=== PATIENT | male | born 1940 | race Caucasian/White ===

== ENCOUNTER 2020-03-06 09:33 | Outpatient (CLI) | payer MEDICARE, SELFPAY ==
--- NOTE | 2020-03-06 09:38 | ECG_ITS ---
Measurements Intervals [place] Rate: 84 P: 50 OK: 239 QRS: -82 QRSD: 173 T: 25 QT: 430 QTc: 509 Interpretive Statements SINUS RHYTHM WITH FIRST DEGREE AV BLOCK LEFT AXIS DEVIATION RIGHT BUNDLE BRANCH BLOCK ABNORMAL ECG Electronically Signed On 03-06-2020 10:02:40 CDT by Magnus Palacio D.O.
== END 2020-03-06 09:34 | disposition home or self-care (01) ==
PROVIDERS: PCP Family Medicine Sports Medicine; Visit Provider Plastic Surgery
DX: Z01.810 Encounter for preprocedural cardiovascular examination (principal); I10 Essential (primary) hypertension; I44.0 Atrioventricular block, first degree; I45.10 Unspecified right bundle-branch block
CPT/HCPCS: 93005

== ENCOUNTER 2020-03-12 00:27 | Outpatient (CLI) | payer MEDICARE, SELFPAY ==
[2020-03-12 20:23] LABS: SARS-CoV-2 RNA PCR Negative
== END 2020-03-12 00:28 | disposition home or self-care (01) ==
LOC: ANHCOVIDDT 00:27
PROVIDERS: PCP Family Medicine Sports Medicine; Visit Provider Plastic Surgery
DX: Z01.812 Encounter for preprocedural laboratory examination (principal); Z20.828 Contact with and (suspected) exposure to other viral communicable diseases
CPT/HCPCS: 87635; C9803; U0003

== ENCOUNTER 2020-03-14 01:51 | Day surgery (SDC) | payer MEDICARE, SELFPAY ==
[2020-03-01 13:16] VITALS: BMI 29.1
--- NOTE | 2020-03-09 20:03 | PM.IMHP ---
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 Our project today is removal of a large 3 cm ulcerated mass of the right parietal scalp. He has been made aware that this ulcerated neoplasm may penetrate through the periosteum to skull. That finding may dictate whether this wound can be closed with a skin graft or require a fairly large local tissue transfer. He is aware of the possibility of wound healing problems, infection, the presence of tumor that may require skull resection at another setting and on another date. Review of Systems Review of Systems: All systems reviewed & are unremarkable except as noted in HPI and below PMFSH Past Medical History Medical History (Updated 03/09/20 @ 20:34 by Shant Thomas MD) Kidney stone Skin cancer Social History Social History Smoking status: Never smoker Alcohol intake: current Drinks per week: 3 Spiritual care concerns: No Meds Home Medications and Allergies Home Medications Medication Instructions Recorded Confirmed Type allopurinol 200 mg PO DAILY 03/01/20 03/01/20 History ascorbic acid (vitamin C) 500 mg PO DAILY 03/01/20 03/01/20 History cholecalciferol (vitamin D3) 50 mcg PO DAILY 03/01/20 03/01/20 History cyanocobalamin (vitamin B-12) 1,000 mcg PO DAILY 03/01/20 03/01/20 History enalapril maleate [Vasotec] 20 mg PO BID 03/01/20 03/01/20 History flaxseed oil 1,000 mg PO BID 03/01/20 03/01/20 History furosemide 40 mg PO DAILY 03/01/20 03/01/20 History gemfibrozil 300 mg PO BID 03/01/20 03/01/20 History xlwjaqsv-xthv-gse3-C-carito-bosw 1 tablet PO BID 03/01/20 03/01/20 History [Osteo Bi-Flex Triple Strength] insulin glargine [Lantus Solostar 75 unit SUBCUT HS 03/01/20 03/01/20 History U-100 Insulin] insulin lispro [Humalog KwikPen 20 unit SUBCUT TID 03/01/20 03/01/20 History Insulin] liraglutide [Victoza 3-Abhijeet] 1.8 mg SUBCUT QAM 03/01/20 03/01/20 History metoprolol tartrate 50 mg PO BID 03/01/20 03/01/20 History rebynihq-lkg-BJ-lycopen-lutein 1 tablet PO DAILY 03/01/20 03/01/20 History [Centrum Silver] omega 3-xwz-bah-fish oil [Fish Oil] 1 cap PO BID 03/01/20 03/01/20 History rosuvastatin [Crestor] 20 mg PO HS 03/01/20 03/01/20 History sitagliptin [Januvia] 100 mg PO DAILY 03/01/20 03/01/20 History Allergies Allergy/AdvReac Type Severity Reaction Status Date / Time meperidine [From Demerol] Allergy Unknown Hallucinati Verified 03/01/20 12:55 ng Exam Narrative: Exam Narrative: 3 cm ulcerated mass of the crown. Several other actinic lesions of the scalp and Face. No palpable adenopathy. Evidence of prior surgeries. Const: General: no acute distress HENMT: Other: No other concerning findings. Eyes: General: appearance normal, both eyes and all related structures Resp: Effort & Inspection: normal respiratory effort Cardio: Rate: regular rate Rhythm: regular rhythm GI: GI Palp: Yes Soft to palpation Skin: Other: As above. Neuro: General: gait normal Speech: normal speech Motor exam (neuro): Normal motor muscle tone present throughout Extrem: General: normal to inspection Psych: Mental Status: mental status grossly normal H&P: Results Labs Labs: Recent A1c 6.7 Assessment and Plan Additional Plan Excision of ulcerated scalp mass with frozen section and wound closure with full-thickness or split-thickness skin graft or local tissue transfer under sedation anesthetic with local.
[2020-03-14 06:48] LABS: Glucose Point of Care 85 (65-105)
[2020-03-14 06:51] VITALS: BP 167/82; PULSE 75; RESP 16; TEMP 37; O2SAT 97
[2020-03-14] MEDS: LACTATED RINGERS 1,000 ML 30 ML IV CONT ×2 (06:58→11:22)
--- NOTE | 2020-03-14 07:12 | WPDANESEPPF ---
Anes - Initial Pre Proc Eval Procedure: Operation Date: 03/14/20 07:30 Proposed Procedures p Excision Ulcerated Neoplasm Right [place] With Frozen Section With Possible Full Thickness Skin Graft Or Local Tissue Transfer - Shant Thomas MD Date/Time: 03/14/20 07:12 Surgeon: Shant Thomas MD Pre Op Diagnosis: Ulcerated Neoplasm Right [place] Patient Data Age: 79 Gender: M Height: 6 ft 2 in Weight: 102.2 kg Last Vital Signs Temp 98.6 F 03/14/20 06:51 Pulse 75 03/14/20 06:51 Resp 16 03/14/20 06:51 BP 167/82 H 03/14/20 06:51 Pulse Ox 97 03/14/20 06:51 Allergies Allergy/AdvReac Type Severity Reaction Status Date / Time meperidine [From Demerol] Allergy Unknown Hallucinati Verified 03/14/20 06:26 Home Medications Medication Instructions Recorded Confirmed Type allopurinol 200 mg PO DAILY 03/01/20 03/01/20 History ascorbic acid (vitamin C) 500 mg PO DAILY 03/01/20 03/14/20 History cholecalciferol (vitamin D3) 50 mcg PO DAILY 03/01/20 03/14/20 History cyanocobalamin (vitamin B-12) 1,000 mcg PO DAILY 03/01/20 03/14/20 History enalapril maleate [Vasotec] 20 mg PO BID 03/01/20 03/01/20 History flaxseed oil 1,000 mg PO BID 03/01/20 03/14/20 History furosemide 40 mg PO DAILY 03/01/20 03/01/20 History gemfibrozil 300 mg PO BID 03/01/20 03/01/20 History rkzaiiba-mqcu-lgt9-C-carito-bosw 1 tablet PO BID 03/01/20 03/01/20 History [Osteo Bi-Flex Triple Strength] insulin glargine [Lantus Solostar 75 unit SUBCUT HS 03/01/20 03/01/20 History U-100 Insulin] insulin lispro [Humalog KwikPen 20 unit SUBCUT TID 03/01/20 03/01/20 History Insulin] liraglutide [Victoza 3-Abhijeet] 1.8 mg SUBCUT QAM 03/01/20 03/01/20 History metoprolol tartrate 50 mg PO BID 03/01/20 03/14/20 History maknyhnr-krx-ZR-lycopen-lutein 1 tablet PO DAILY 03/01/20 03/14/20 History [Centrum Silver] omega 2-iqd-fcu-fish oil [Fish Oil] 1 cap PO BID 03/01/20 03/14/20 History rosuvastatin [Crestor] 20 mg PO HS 03/01/20 03/01/20 History sitagliptin [Januvia] 100 mg PO DAILY 03/01/20 03/01/20 History Laboratory Tests 03/14/20 06:47 POC Capillary Glucose 85 mg/dl mg/dl (65-105) Patient hx anesthesia problems: none Family hx anesthesia problems: none [facility] Past Medical History Medical History (Updated 03/14/20 @ 07:12 by Higinio Fenton MD) Hyperlipidemia Hypertension Kidney stone Skin cancer Social History Social History Smoking status: Never smoker Alcohol intake: current Drinks per week: 3 Alcohol use details: [place] Living arrangements: with family Spiritual care concerns: No Anes - Eval Final PreProcedure Day of Procedure 03/14/20 07:12 Patient weight: obese Heart: regular rate and rhythm Lungs: clear to auscultation Airway: Mallampati scale class III Neurological: alert and oriented Last oral intake: >/= 8 hours ASA classification: III Emergent: no Anesthetic plan: proceed Anesthesia type and monitoring: general GIVS (may use LMA) and standard monitoring Informed Consent: The patient's anesthetic plan and its attendant risks and benefits were discussed with the patient/family/POA. Questions were solicited and answers provided to the satisfaction of the patient/family/POA.
--- NOTE | 2020-03-14 07:14 | WPDHPUPDATE1 ---
History and Physical Update Update Date/Time: 03/14/20 07:14 History and Physical has been reviewed, including an updated exam of the patient. There are NO changes in the patient's condition. Risks, benefits, and alternatives have been discussed and questions answered. Patient agrees to proceed with procedure.
[2020-03-14] MEDS: ceFAZolin 2 GM/D5W 50 ML 2 GM/50 ML BAG IVPB (07:33)
--- NOTE | 2020-03-14 07:49 | SUR.PREOP ---
0645 pt upset and called and then calmner.
[2020-03-14] MEDS: LIDO 1%/EPINEPHRINE 1:100,000 20 ML VIAL INFILTRATE (09:28)
[2020-03-14] MEDS: BACITRACIN OINTMENT 15 GM TUBE 1 APPLIC TOPICAL (09:29)
--- NOTE | 2020-03-14 09:42 | PM.OP ---
Procedure Note - Brief Procedure Note - Brief Date of procedure: 03/14/20 Pre-op diagnosis: Ulcerated Neoplasm Right [place] Post-op diagnosis: other (SCCa) Procedure performed: 3.5 cm excision of SCCA of crown with FS x2 and FTSG 10.0 sq cm. Anesthesia: MAC Surgeon: Sahnt Thomas MD Estimated blood loss (mL): 4 Drains: No Packing: No Pathology: yes Complications: No immediate complications Condition: stable Disposition: same day
[2020-03-14 09:47] VITALS: BP 137/63; PULSE 79; RESP 16; TEMP 36.2; O2SAT 98
--- NOTE | 2020-03-14 10:08 | PM.PROC ---
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 The right thigh was marked also for graft donor site. He was taken to the operating room and placed supine on the operating table. Time-out was held and confirmed and he was given IV sedation. The head and right thigh were prepped and draped in the usual fashion. The site on the head was carefully marked for an excision with a wide margin and infiltrated with% lidocaine with epinephrine. The specimen was excised into the subcutaneous tissue and superficial galea. The aspect nearest the top of the ear was marked as 12:00 o'clock. The specimen was sent to pathology for frozen section. While the diagnosis was pending we took the 2nd specimen that underlay the thickest part of the tumor and appeared to possibly involve the galea. This was carefully excised off the periosteum. A similar marking was placed and that was sent to pathology. The pathologist reported that the peripheral margins were free of tumor the deep margin however was positive on the original specimen but did not penetrate the 2nd specimen. We elected to close the wound with a full-thickness graft from the right thigh. The site was carefully marked out and infiltrated with 1% lidocaine with epinephrine. The graft was taken and set aside. The donor site was undermined and closed with intradermal 2-0 Vicryl suture and a running 5 0 nylon. The graft was carefully defatted and inset with 5-0 and 4-0 nylon. Quilting sutures were also placed across the graft to help it to the wound bed. The patient was given 2 g of Ancef preop. He is being discharged home with instructions in wound care and follow-up. He has a prescription for tramadol 50 mg number 10, and cephalexin 500 mg 15. Surgeon: Shant Thomas MD
[2020-03-14 10:15] VITALS: BP 135/80; PULSE 75; RESP 16; O2SAT 98
[2020-03-14 10:45] VITALS: BP 157/69; PULSE 72; RESP 16
[2020-03-14 11:05] VITALS: BP 154/69; PULSE 75; RESP 16
== END 2020-03-14 11:15 | disposition home or self-care (01) ==
PROVIDERS: PCP Family Medicine Sports Medicine; Visit Provider Plastic Surgery
PROC: (CPT 11624; principal; 2020-03-14 07:30)
DX: C44.42 Squamous cell carcinoma of skin of scalp and neck (principal); I10 Essential (primary) hypertension; E78.5 Hyperlipidemia, unspecified; E11.9 Type 2 diabetes mellitus without complications; Z79.4 Long term (current) use of insulin; E66.9 Obesity, unspecified; Z68.28 Body mass index [BMI] 28.0-28.9, adult
CPT/HCPCS: 11624; 15220; 88305; 88331; 88332; A9270; J0690; J2704; J3010; J7120

== ENCOUNTER 2020-04-17 00:18 | Outpatient (CLI) | payer MEDICARE, SELFPAY ==
[2020-04-17 20:04] LABS: SARS-CoV-2 RNA PCR Negative
== END 2020-04-17 00:19 | disposition home or self-care (01) ==
LOC: ANHCOVIDDT 00:19
PROVIDERS: PCP Family Medicine Sports Medicine; Visit Provider Plastic Surgery
DX: Z01.812 Encounter for preprocedural laboratory examination (principal); Z11.59 Encounter for screening for other viral diseases
CPT/HCPCS: 87635; C9803; U0003

== ENCOUNTER 2020-04-17 07:35 | Outpatient (CLI) | payer MEDICARE, SELFPAY ==
[2020-04-17 08:04] LABS: Anion Gap 7 mmol/L (8-16); Blood Urea Nitrogen 21 mg/dL (9-20); Calcium 8.6 mg/dL (8.4-10.2); Carbon Dioxide 21 mmol/L (22-30); Chloride 112 mmol/L (98-107); Estimated Glomerular Filt Rate > 60; Glucose 134 mg/dL (75-110); Potassium 3.7 mmol/L (3.4-5.0); Sodium 140 mmol/L (137-145)
== END 2020-04-17 07:36 | disposition home or self-care (01) ==
LOC: ANHSURGERY 07:37
PROVIDERS: Anesthesiology; PCP Family Medicine Sports Medicine; Visit Provider Plastic Surgery
DX: Z01.818 Encounter for other preprocedural examination (principal); E11.9 Type 2 diabetes mellitus without complications
CPT/HCPCS: 36415; 80048

== ENCOUNTER 2020-04-19 01:20 | Day surgery (SDC) | payer MEDICARE, SELFPAY ==
[2020-04-12 10:12] VITALS: BMI 29.2
[2020-04-19 06:52] VITALS: BP 131/63; PULSE 72; RESP 20; TEMP 36.8; O2SAT 98
[2020-04-19] MEDS: LACTATED RINGERS 1,000 ML 30 ML IV CONT (07:10)
[2020-04-19 07:12] LABS: Glucose Point of Care 115 (65-105)
--- NOTE | 2020-04-19 07:15 | WPDHPUPDATE1 ---
History and Physical Update Update Date/Time: 04/19/20 07:15 History and Physical has been reviewed, including an updated exam of the patient. There are NO changes in the patient's condition. Risks, benefits, and alternatives have been discussed and questions answered. Patient agrees to proceed with procedure.
--- NOTE | 2020-04-19 07:37 | WPDANESEPPF ---
Anes - Initial Pre Proc Eval Procedure: Operation Date: 04/19/20 08:30 Proposed Procedures p Excision Of Ulcerated Neoplasm Left Anterior [place] With Frozen Section, Possible Full Thickness Skin Graft Or Local Tissue Transfer - Shant Thomas MD Date/Time: 04/19/20 07:37 Surgeon: Shant Thomas MD Pre Op Diagnosis: Ulcerated Neoplasm Left Anterior [place] Patient Data Age: 79 Gender: M Height: 6 ft 2 in Weight: 101.6 kg Last Vital Signs Temp 98.3 F 04/19/20 06:52 Pulse 72 04/19/20 06:52 Resp 20 04/19/20 06:52 BP 131/63 04/19/20 06:52 Pulse Ox 98 04/19/20 06:52 Allergies Allergy/AdvReac Type Severity Reaction Status Date / Time meperidine [From Demerol] Allergy Unknown Hallucinati Verified 04/19/20 07:17 ng Home Medications Medication Instructions Recorded Confirmed Type allopurinol 200 mg PO DAILY 03/01/20 04/19/20 History ascorbic acid (vitamin C) 500 mg PO DAILY 03/01/20 04/19/20 History cholecalciferol (vitamin D3) 50 mcg PO DAILY 03/01/20 04/19/20 History cyanocobalamin (vitamin B-12) 1,000 mcg PO DAILY 03/01/20 04/19/20 History enalapril maleate [Vasotec] 20 mg PO BID 03/01/20 04/19/20 History flaxseed oil 1,000 mg PO BID 03/01/20 04/19/20 History furosemide 40 mg PO DAILY 03/01/20 04/19/20 History gemfibrozil 300 mg PO BID 03/01/20 04/19/20 History sarkxncy-lznd-ftq3-C-carito-bosw 1 tablet PO BID 03/01/20 04/19/20 History [Osteo Bi-Flex Triple Strength] insulin glargine [Lantus Solostar 75 unit SUBCUT HS 03/01/20 04/19/20 History U-100 Insulin] insulin lispro [Humalog KwikPen 20 unit SUBCUT TID 03/01/20 04/19/20 History Insulin] liraglutide [Victoza 3-Abhijeet] 1.8 mg SUBCUT QAM 03/01/20 04/19/20 History metoprolol tartrate 50 mg PO BID 03/01/20 04/19/20 History vbqfoymj-fzr-FW-lycopen-lutein 1 tablet PO DAILY 03/01/20 04/19/20 History [Centrum Silver] omega 2-uie-hpx-fish oil [Fish Oil] 1 cap PO BID 03/01/20 04/19/20 History rosuvastatin [Crestor] 20 mg PO HS 03/01/20 04/19/20 History sitagliptin [Januvia] 100 mg PO DAILY 03/01/20 04/19/20 History Laboratory Tests 04/19/20 07:08 POC Capillary Glucose 115 mg/dl H mg/dl (65-105) Patient hx anesthesia problems: none Family hx anesthesia problems: none [facility] Past Medical History Medical History (Updated 04/19/20 @ 07:28 by Higinio Fenton MD) Diabetes type 2, controlled Hyperlipidemia Hypertension Kidney stone Skin cancer Social History Social History Smoking status: Never smoker Alcohol intake: current Drinks per week: 3 Alcohol use details: ONE DRINK PER MONTH Living arrangements: with family Spiritual care concerns: No Anes - Eval Final PreProcedure Day of Procedure 04/19/20 07:37 Patient weight: overweight Heart: regular rate and rhythm Lungs: clear to auscultation Airway: Mallampati scale class III Neurological: alert and oriented Last oral intake: >/= 8 hours ASA classification: III Emergent: no Anesthetic plan: proceed Anesthesia type and monitoring: general GIVS and standard monitoring Informed Consent: The patient's anesthetic plan and its attendant risks and benefits were discussed with the patient/family/POA. Questions were solicited and answers provided to the satisfaction of the patient/family/POA.
[2020-04-19] MEDS: LIDO 1%/EPINEPHRINE 1:100,000 20 ML VIAL INFILTRATE (08:30)
[2020-04-19 10:05] VITALS: BP 144/73; PULSE 66; RESP 15; TEMP 36.4; O2SAT 97
--- NOTE | 2020-04-19 10:28 | PM.OP ---
Procedure Note - Brief Procedure Note - Brief Date of procedure: 04/19/20 Pre-op diagnosis: Ulcerated Neoplasm Left Anterior [place] Post-op diagnosis: other (BCC left anterior oriental orthodox.) Procedure performed: Excision BCC left anterior oriental orthodox 6 sq cm with FS and LTT,17 sq cm. Anesthesia: MAC Surgeon: Shant Thomas MD Drains: No Packing: No Pathology: yes Complications: No immediate complications Condition: stable Disposition: same day
[2020-04-19 10:35] VITALS: BP 137/67; PULSE 57; RESP 15
[2020-04-19 10:35] LABS: Glucose Point of Care 119 (65-105)
--- NOTE | 2020-04-19 10:37 | P.OP_ITS ---
Procedure Note - Detailed Date of procedure: 04/19/20 Pre-op diagnosis: Ulcerated Neoplasm Left Anterior [place] Post-op diagnosis: other (Basal cell carcinoma left anterior temporal) Procedure performed: 3 cm excision of basal cell carcinoma of the left anterior denominational with frozen section and local tissue transfer 17 sq cm Description of procedure: The site on the forehead was marked as the patient lay in the holding area. He was taken to the operating room and placed supine on the operating table. A time-out was held and confirmed. He was given sedation anesthetic. The Face was prepped and draped in usual fashion along with a donor site on the left supraclavicular region. The site was marked for excision with what we thought would be at least a 4 mm margin. This area was infiltrated with 1% lidocaine with epinephrine. The skin excision was made as marked and dissection was carried carefully over the orbicularis and frontalis muscle. We did not see any branch of the frontal branch of the facial nerve. The specimen was marked with a suture for 12 o'clock. It was sent to pathology. The pathologist reported that this is a basal cell carcinoma, fairly extensive,But the margins were free. The wound was closed with a Z-plasty. This was locally infiltrated with 1% lidocaine with epinephrine, incised and widely elevated. We were able to close that with the intradermal 3-0 Vicryl sutures. Very little tailoring was required. The skin was closed with running 5 0 nylon. Estimated blood loss approximately 5 milliliter. He is discharged from the operating room in stable condition. He will have instructions in wound care and follow-up. He has prescriptions called in for cephalexin 500 mg 15. And Tramadol number 12. Surgeon: Shant Thomas MD
[2020-04-19 10:50] VITALS: BP 127/67; PULSE 64; RESP 15
== END 2020-04-19 10:53 | disposition home or self-care (01) ==
PROVIDERS: PCP Family Medicine Sports Medicine; Visit Provider Plastic Surgery
PROC: (CPT 14041; principal; 2020-04-19 08:30)
DX: C44.319 Basal cell carcinoma of skin of other parts of face (principal); I10 Essential (primary) hypertension; E78.5 Hyperlipidemia, unspecified; E11.9 Type 2 diabetes mellitus without complications; Z79.4 Long term (current) use of insulin; Z79.84 Long term (current) use of oral hypoglycemic drugs
CPT/HCPCS: 14041; 36415; 80048; 87635; 88305; 88331; A9270; C9803; J2405; J2704; J3010; J7120; U0003

== ENCOUNTER 2021-09-04 00:42 | Day surgery (SDC) | payer MEDICARE, SELFPAY ==
[2021-08-28 08:35] VITALS: BMI 29.7
--- NOTE | 2021-08-28 09:04 | PC.NURSE ---
Report to the Outpatient Waiting Room, entrance under the green pavilion located off [facility], at time __6:00AM on date __09/04/21 . OR Time: _7:30AAM . - You will be asked a series of questions to screen for COVID 19 for your protection. - A mask is required within the hospital. - No visitors are allowed at this time. Preoperative COVID Testing Requirements: No COVID Test needed if: (proof is required; if not received patient will have Rapid Test prior to entry) - Patient has received COVID Vaccine at least 14 days prior to procedure date or - Patient has positive COVID test result within last 90 days of surgery date. COVID Test needed if above criteria is not met If not COVID vaccinated a COVID test must be conducted within 72 hours of surgery and patient is asked to isolate self from time of testing until procedure. You will go to the [facility] for your COVID testing. The [facility] is located at the corner of [address] [facility]. You will only be called if COVID results are positive and your surgeon may reschedule your elective surgery date. Patients may have clear liquids (water, carbonated beverages, clear teas, apple juice) until 3 hours prior to surgery with a maximum of 20 ounces. - No food from midnight until time of surgery - Infants may have breast milk until 4 hours before surgery, formula 6 hours prior to surgery. - Children will be allowed to drink immediately following surgery. If applicable, please bring a bottle or sippy cup to assist with drinking. Juice, water, soda, and popsicles are readily available. For infants on formula, please bring formula the day of surgery. Pacifiers are allowed. Take the following medications with a SIP of water the morning of surgery: METOPROLOL Medications to discontinue per physician ____ALL VITAMINS/SUPPLEMENTS 3 DAYS PRE-OP Date to take last dose 09/01/21 Please no make-up, nail greenlandic, hairspray, perfume, deodorant, or body powder the day of surgery. No jewelry (including any body piercings) or valuables the day of surgery, leave them at home. Please take a shower or bath the night before, or the morning of, surgery with an antibacterial soap. Wear comfortable, loose fitting clothing. Children are encouraged to wear pajamas. - Jewelry must be removed prior to entering the operating room. Rings and piercings that are not removed may be cut off. - The hospital will not accept responsibility for valuables. - Please leave all valuables, including medications, at home the day of surgery. If you are going home after surgery, a licensed public transit bus driver must drive you home. - NO public transportation without another adult. - We recommend that an adult stay with you for 24 hours following discharge. - We also recommend that you do not drive, make important decision, drink alcoholic beverages, or take any drugs that were not prescribed by your health care provider for at least 24 hours after your discharge time. For Pediatric surgeries, we recommend two adults accompany the child home (only one inside the building at this time). Follow any additional instructions given to you from your surgeon. Telephone instructions given to __PATIENT and asked if any additional questions and then verbalized understanding. Patient advised to call surgeon office or pre surgery nurse liaison [phone] if any additional questions.
[2021-09-04 06:23] VITALS: BP 174/81; PULSE 78; RESP 16; TEMP 36.8; O2SAT 98
--- NOTE | 2021-09-04 06:45 | WPDANESEPPF ---
Anes - Initial Pre Proc Eval Procedure: Operation Date: 09/04/21 07:30 Proposed Procedures p Excision of Ulcerated Mass Right [place] with Frozen Section and Probable Split Thickness Skin Graft - Shant Thomas MD Date/Time: 09/04/21 06:45 Surgeon: Shant Thomas MD Pre Op Diagnosis: Ulcerated Mass Rt [place] Patient Data Age: 80 Gender: M Height: 1.88 m Weight: 106.8 kg Last Vital Signs Temp 36.8 C 09/04/21 06:23 Pulse 78 09/04/21 06:23 Resp 16 09/04/21 06:23 BP 174/81 H 09/04/21 06:23 Pulse Ox 98 09/04/21 06:23 Allergies Allergy/AdvReac Type Severity Reaction Status Date / Time meperidine [From Demerol] Allergy Mild Hallucinati Verified 09/04/21 06:36 ons Home Medications Medication Instructions Recorded Confirmed Type Centrum Silver 1 tablet PO DAILY 03/01/20 09/04/21 History Januvia 100 mg PO QAM 03/01/20 09/04/21 History Lantus Solostar U-100 Insulin 75 unit SUBCUT HS 03/01/20 09/04/21 History Osteo Bi-Flex Triple Strength 1 tablet PO BID 03/01/20 09/04/21 History Victoza 3-Abhijeet 1.8 mg SUBCUT QAM 03/01/20 09/04/21 History allopurinol 200 mg PO DAILY 03/01/20 09/04/21 History ascorbic acid (vitamin C) 500 mg PO DAILY 03/01/20 09/04/21 History cholecalciferol (vitamin D3) 100 mcg PO DAILY 03/01/20 09/04/21 History cyanocobalamin (vitamin B-12) 1,000 mcg PO DAILY 03/01/20 09/04/21 History enalapril maleate [Vasotec] 20 mg PO BID 03/01/20 09/04/21 History flaxseed oil 1,000 mg PO BID 03/01/20 09/04/21 History furosemide 40 mg PO QAM 03/01/20 09/04/21 History gemfibrozil 300 mg PO BID 03/01/20 09/04/21 History insulin lispro [Humalog KwikPen 20 unit SUBCUT TIDWMEAL 03/01/20 09/04/21 History Insulin] metoprolol tartrate 50 mg PO BID 03/01/20 09/04/21 History omega 2-beq-edy-fish oil [Fish Oil] 1 cap PO BID 03/01/20 09/04/21 History rosuvastatin [Crestor] 20 mg PO HS 03/01/20 09/04/21 History Patient hx anesthesia problems: none Family hx anesthesia problems: none Results Review: All pre-operative results and documents have been reviewed as part of the pre-operative evaluation. [facility] Past Medical History Medical History (Updated 09/03/21 @ 13:54 by Fred Gresham DO) CHF (congestive heart failure) Diabetes type 2, controlled Hyperlipidemia Hypertension Kidney stone Skin cancer Social History Social History Smoking status: Never smoker Tobacco type: pipe Alcohol intake: current Drinks per week: 2 Alcohol use details: ONE DRINK PER MONTH Substance use: never Living arrangements: with family Additional living arrangements comments: Spiritual care concerns: No Anes - Eval Final PreProcedure Day of Procedure 09/04/21 06:45 Patient weight: obese Heart: regular rate and rhythm Lungs: clear to auscultation and normal air movement Airway: Mallampati scale class II Neurological: alert and oriented Last oral intake: >/= 8 hours ASA classification: III Emergent: no Anesthetic plan: proceed Anesthesia type and monitoring: general GIVS and standard monitoring Results Review: All pre-operative results and documents have been reviewed as part of the pre-operative evaluation. Informed Consent: The patient's anesthetic plan and its attendant risks and benefits were discussed with the patient/family/POA. Questions were solicited and answers provided to the satisfaction of the patient/family/POA.
[2021-09-04] MEDS: LACTATED RINGERS 1,000 ML 30 ML IV CONT (06:50)
[2021-09-04 06:54] LABS: Glucose Point of Care 143 mg/dl (65-105)
--- NOTE | 2021-09-04 07:19 | WPDHPUPDATE1 ---
History and Physical Update Update Date/Time: 09/04/21 07:19 History and Physical has been reviewed, including an updated exam of the patient. There are NO changes in the patient's condition. Risks, benefits, and alternatives have been discussed and questions answered. Patient agrees to proceed with procedure.
[2021-09-04] MEDS: ceFAZolin 2 GM/D5W 50 ML 2 GM/50 ML BAG IVPB (07:23)
[2021-09-04] MEDS: LIDO 1%/EPINEPHRINE/PF 1:200,000 30 ML VIAL INFILTRATE (08:00)
[2021-09-04] MEDS: BACITRACIN OINTMENT 15 GM TUBE 1 APPLIC TOPICAL (08:54)
[2021-09-04 09:00] VITALS: BP 127/64; PULSE 87; RESP 16; O2SAT 94
--- NOTE | 2021-09-04 09:24 | P.OP_ITS ---
Procedure Note - Detailed Date of Procedure 09/04/21 Pre-op Diagnosis Ulcerated Mass Rt [place] Post-op Diagnosis other (Actinic keratosis) Procedure Performed 1.8 cm excision of ulcerated neoplasm of the right crown with frozen section and full-thickness skin graft 2.5 sq cm Surgeon Shant Thomas MD Anesthesia MAC Indications 1.5 cm depressed keratotic mass adjacent to a prior skin cancer site. Findings Actinic keratoses Description of Procedure The site was marked on the patient's head in the preop area. This was a very hard depressed keratin mass. A recent biopsy indicated actinic keratoses along 1 side of this mass. He was taken to the operating room where he was placed supine on the operating table. He was administered sedation anesthetic in the supine position. The head and right neck were prepped and draped in usual fashion. The head was supported to allow access to the crown. A time-out was held confirmed. The margins of the mass were marked and the area locally infiltrated with 1% lidocaine with epinephrine. The excision was carried out through the skin and subcutaneous tissue sparing the deep scar and periosteum. Specimen was marked at the anterior edge with a suture to orient the pathologist. The pathologist reported that the mass is entirely and actinic keratoses. Skin graft was harvested from right upper neck. It was prepared as a full-thickness graft and inset with running 5 0 nylon. Pie crusting vents were made with the 15 blade and quilting sutures in placed. And small dry dressing was applied over bacitracin ointment. The donor site on the right neck was closed with intradermal 3-0 Vicryl and glue. Estimated Blood Loss -10.0 Drains No Packing No Pathology yes Complications No immediate complications Condition stable Disposition same day
[2021-09-04 09:28] LABS: Glucose Point of Care 152 mg/dl (65-105)
[2021-09-04 09:30] VITALS: BP 155/74; PULSE 85; RESP 16; O2SAT 97
[2021-09-04 09:40] VITALS: BP 141/69; PULSE 80; RESP 16
== END 2021-09-04 09:50 | disposition home or self-care (01) ==
PROVIDERS: PCP Family Medicine Sports Medicine; Visit Provider Plastic Surgery
PROC: (CPT 11422; principal; 2021-09-04 07:30)
DX: L57.0 Actinic keratosis (principal); I11.0 Hypertensive heart disease with heart failure; I50.9 Heart failure, unspecified; E11.9 Type 2 diabetes mellitus without complications; E78.5 Hyperlipidemia, unspecified; Z79.4 Long term (current) use of insulin; E66.9 Obesity, unspecified; Z68.30 Body mass index [BMI] 30.0-30.9, adult
CPT/HCPCS: 11422; 15220; 82948; 88305; 88331; A9270; J0690; J1100; J2405; J2704; J3010; J7120

== ENCOUNTER 2024-04-01 13:24 | Outpatient (CLI) | payer MEDICARE, SELFPAY ==
--- NOTE | 2024-04-01 13:43 | ECG_ITS ---
Test Date: 2024-04-01 14:09:37 Measurements Intervals [place] Rate: 92 P: 89 IN: 210 QRS: -54 QRSD: 152 T: 104 QT: 400 QTc: 497 Interpretive Statements ATRIAL SENSE- ELECTRONIC VENTRICULAR PACEMAKER BASELINE ARTIFACT- I, III, AVR, AVL, AVF, V1-V6 NO FURTHER INTERPRETATION IS POSSIBLE ATYPICAL ECG No previous ECG available for comparison Electronically Signed On 04-01-2024 15:33:48 CDT by Magnus Palacio D.O.
[2024-04-01 14:25] LABS: Chloride 108 mmol/L (98-107)
[2024-04-01 14:30] LABS: INR 1.1; Prothrombin Time 14.4 Seconds (11.1-14.7)
[2024-04-01 14:31] LABS: Partial Thromboplastin Time 27.1 Seconds (22.3-36.8)
[2024-04-01 14:41] LABS: Anion Gap 12 mmol/L (4-12); Blood Urea Nitrogen 21 mg/dL (9-20); Calcium 8.8 mg/dL (8.4-10.2); Carbon Dioxide 17 mmol/L (22-30); Estimated Glomerular Filt Rate 58; Glucose 251 mg/dL (65-110); Sodium 137 mmol/L (137-145)
== END 2024-04-01 13:25 | disposition home or self-care (01) ==
PROVIDERS: Anesthesiology; PCP Family Medicine Sports Medicine; Visit Provider Plastic Surgery
DX: Z01.818 Encounter for other preprocedural examination (principal); N28.9 Disorder of kidney and ureter, unspecified; E11.9 Type 2 diabetes mellitus without complications; Z95.0 Presence of cardiac pacemaker
CPT/HCPCS: 36415; 80048; 85610; 85730; 93005

== ENCOUNTER 2024-04-06 01:58 | Day surgery (SDC) | payer MEDICARE, SELFPAY ==
--- NOTE | 2024-03-30 15:43 | PC.NURSE ---
Report to the Outpatient Waiting Room, entrance under the green pavilion located off [facility], at time _0600_ on date _[id number]_. Planned Procedure Time: _0730_.? Time changes happen often and if your time is changed the preop area will call you the afternoon before. - You and your visitor will be asked to self-screen and do not enter if you have any COVID symptoms. Please call surgeon if you need to reschedule. - A mask is optional within the hospital at this time. - No food or drink from midnight until time of surgery and no smoking Take only the following medications with a SIP of water on the morning of surgery: ____None DO NOT STOP ANY OF YOUR OTHER PRESCRIPTION MEDICATIONS PRIOR TO SURGERY EXCEPT THE FOLLOWING Medications to discontinue per physician All vitamins and supplements Date to take last iako___[id number] Please no make-up, nail vietnamese, hairspray, perfume, deodorant, or body powder the day of surgery.? No jewelry (including any body piercings) or valuables the day of surgery, leave them at home.? Please take a shower or bath the night before, or the morning of, surgery with an antibacterial soap.? Wear comfortable, loose fitting clothing.? - Jewelry must be removed prior to entering the operating room.? Rings and piercings that are not removed may be cut off. - The hospital will not accept responsibility for valuables.? - Please leave all valuables, including medications, at home the day of surgery. If you are going home after surgery, a licensed [employer] driver must drive you home.? - NO public transportation without another adult if you receive anesthesia. - We recommend that an adult stay with you for 24 hours following discharge. - We also recommend that you do not drive, make important decision, drink alcoholic beverages, or take any drugs that were not prescribed by your health care provider for at least 24 hours after your discharge time. Follow any additional instructions given to you from your surgeon. Telephone instructions given to __George__and asked if any additional questions and then verbalized understanding. Patient advised to call surgeon office or pre surgery nurse liaison [phone] if any additional questions.
[2024-03-30 15:55] VITALS: BMI 23.1
[2024-04-06] VITALS (9 sets, daily range): BP systolic 119–148; BP diastolic 56–77; PULSE 72–91; RESP 12–20; TEMP 36.6–37.3; O2SAT 98–100
[2024-04-06 06:47] LABS: Glucose Point of Care 57 mg/dl (65-105)
--- NOTE | 2024-04-06 06:57 | WPDHPUPDATE1 ---
History and Physical Update Update Date/Time: 04/06/24 06:57 Patient seen and examined in pre-operative holding area. No interval change in medical history or symptoms except persistent non-healing lesion on right cheek. discussed concurrent exision of this lesion as well. Patient recalls previous discussion of benefits and alternatives to procedure. Continues to desire to proceed with excision scalp lesion with integra placement and excision right arm lesion and hand lesion x2 and right cheek lesion . Reviewed procedure, post-op expectations and risks including but not limited to bleeding, infection, undesireable cosmetic appearance, partial/total graft loss, recurrence, no change or worsening of symptoms. I discussed the possible use of assistants and their participation in the case. Patient stated understanding and signed the consent form wishing to proceed.
[2024-04-06] MEDS: DEXTROSE 50% 25 GM/50 ML SYRINGE IV PUSH (07:00)
[2024-04-06] MEDS: DEXTROSE 5%/0.45% SOD CHL 1,000 ML 100 ML IV CONT (07:00)
--- NOTE | 2024-04-06 07:05 | WPDANESEPPF ---
Anes - Initial Pre Proc Eval Procedure: Operation Date: 04/06/24 07:30 Proposed Procedures p Excision Scalp Lesion with Frozen Section and Integra Placement, - Azael Montelongo MD s Excision Right Arm Lesion, Excision Right Hand Lesion - Azael Montelongo MD Date/Time: 04/06/24 07:05 Surgeon: Azael Montelongo MD Pre Op Diagnosis: neoplasm unc behavior scalp, rt arm and hand Patient Data Age: 83 Gender: M Height: 1.88 m Weight: 81.8 kg Allergies Allergy/AdvReac Type Severity Reaction Status Date / Time meperidine [From Demerol] AdvReac Mild Hallucinati Verified 03/30/24 15:44 ons Home Medications Medication Instructions Recorded Confirmed Type ascorbic acid (vitamin C) 500 mg 500 mg PO DAILY 03/01/20 03/30/24 History capsule cholecalciferol (vitamin D3) 50 100 mcg PO DAILY 03/01/20 03/30/24 History mcg (2,000 unit) tablet cyanocobalamin (vitamin B-12) 1,000 mcg PO DAILY 03/01/20 03/30/24 History 1,000 mcg tablet enalapril maleate 20 mg tablet 20 mg PO BID 03/01/20 03/30/24 History (Vasotec) furosemide 40 mg tablet 40 mg PO QAM 03/01/20 03/30/24 History gemfibrozil 600 mg tablet 300 mg PO BID 03/01/20 03/30/24 History glucosamine 750 fh-pguvlpuibvq-bjx 1 tablet PO BID 03/01/20 03/30/24 History no1 644 mg-C 30 mg-carito 1 mg tablet (Osteo Bi-Flex Triple Strength) insulin glargine 100 unit/mL (3 75 unit subcut HS 03/01/20 03/30/24 History mL) subcutaneous pen (Lantus Solostar U-100 Insulin) rosuvastatin 20 mg tablet (Crestor) 20 mg PO HS 03/01/20 03/30/24 History sitagliptin phosphate 100 mg 100 mg PO QAM 03/01/20 03/30/24 History tablet (Januvia) tramadol 50 mg tablet 50 - 100 mg PO Q6H PRN pain #10 02/09/22 09/04/24 Rx tabs colchicine 0.6 mg capsule 0.6 mg PO DAILY 03/30/24 03/30/24 History dapagliflozin propaned 10 1 tablet PO DAILY 03/30/24 03/30/24 History mg-metformin ER 500 mg tablet, ext rel 24hr (Xigduo XR) Laboratory Tests 04/06/24 06:44 POC Capillary Glucose 57 L* mg/dl (65-105) Patient hx anesthesia problems: none Family hx anesthesia problems: none Results Review: All pre-operative results and documents have been reviewed as part of the pre-operative evaluation. [facility] Past Medical History Medical History CHF (congestive heart failure) Diabetes type 2, controlled Hyperlipidemia Hypertension Kidney stone Skin cancer Social History Social History Smoking status: Former smoker Tobacco type: pipe Smoking end date: 03/30/72 Alcohol intake: current Drinks per week: 2 Alcohol use details: ONE DRINK PER MONTH Substance use: never Living arrangements: alone Additional living arrangements comments: Spiritual care concerns: No Anes - Eval Final PreProcedure Day of Procedure 04/06/24 07:05 Patient weight: normal Heart: regular rate and rhythm Lungs: clear to auscultation Airway: Mallampati scale class 1 Neurological: alert and oriented Last oral intake: >/= 8 hours ASA classification: III Emergent: no Anesthetic plan: proceed Anesthesia type and monitoring: general LMA and standard monitoring Results Review: All pre-operative results and documents have been reviewed as part of the pre-operative evaluation. Informed Consent: The patient's anesthetic plan and its attendant risks and benefits were discussed with the patient/family/POA. Questions were solicited and answers provided to the satisfaction of the patient/family/POA.
[2024-04-06 07:19] LABS: Glucose Point of Care 110 mg/dl (65-105)
--- NOTE | 2024-04-06 07:25 | W.PM.PROC2 ---
Procedure Note - Detailed Date of Procedure 04/06/24 Pre-op Diagnosis neoplasm unc behavior scalp, rt arm, right hand and right cheek Post-op Diagnosis Same Procedure Performed excision right arm lesion, excision right hand lesions, excision right cheek lesion, excision scalp lesion with integra placement Surgeon Azael Montelongo MD Grain Unloader Bhavna Roca PA-C Anesthesia MAC Description of Procedure Patient was seen in the preoperative holding area where the scalp right arm right hand and right cheek lesions were marked and the consent form was signed. Patient was taken back to the operating room on the stretcher in supine position. Time-out was performed with Anesthesia, surgeon, and staff agreeing on patient's name, sites, and surgery to be performed. SCDs were placed on the lower extremities and inflated. Antibiotics were given IV. After general anesthesia was administered the operative sites were prepped and draped in the usual sterile fashion. I injected 20 cc of 1% lidocaine with epinephrine and 0.5% Marcaine plain amongst the operative sites. I took my attention 1st to the scalp lesion where I proceeded with marking 1 cm margins and proceeded with circumferential excision of this lesion with 15 blade scalpel and Bovie cautery. It was noted that at these central ulceration of the lesion this extended down to and appeared to include para cranium. After excision this was tagged and sent for final pathology. Using 15 blade scalpel I proceeded with taking additional margins from the superior inferior left and right aspects of the wound and sent these for frozen section. After the frozen sections were noted to be free of any malignant neoplasm I proceeded with irrigation with normal saline and hemostasis with Bovie cautery. The defect measured 4.5 cm x 4.5 cm. I then proceeded with sewing in a piece of bilayer Integra with 4-0 nylon and 4-0 chromic trimming it appropriately to fit the scalp defect. This was covered with Adaptic followed by a wound VAC sponge that was stapled into place as a bolster dressing and covered with Tegaderm. I next turned my attention to the right scalp using fresh instruments using 15 blade scalpel to make an elliptical incision around the right cheek lesion through skin and dermis with a 15 blade scalpel with 3 mm margins. I proceeded with further excision of skin inferiorly and superiorly to remove dog-ears and help improve closure. I undermined the skin edges. Hemostasis was obtained with Bovie cautery and I irrigated with normal saline. Closure was done with 5 0 Monocryl for dermis and subcuticular closure. Diameter of excision with margins was 1.2 cm. Length of closure was 2 cm I now turned my attention to the right arm where I proceeded with using 15 blade scalpel to make an elliptical incision around the right arm lesion through skin and dermis with a 15 blade scalpel with 4 mm margins. I proceeded with further excision of skin proximally and distally to remove dog-ears and help improve closure. I undermined the skin edges. Hemostasis was obtained with Bovie cautery and I irrigated with normal saline. Closure was done with 3-0 vicryl and 4-0 monoccryl for dermis and subcuticular closure. Diameter of excision with margins was 2.1 cm. Length of closure was 2.6 cm Next I took my attention to the right dorsal hand lesion. Here the patient had two distince and separate lesions with a small 3-4mm skin bridge between them. using a 15 blade scalpel to make an elliptical incision around both lesions through skin and dermis with a 15 blade scalpel with 4 mm margins. I proceeded with further excision of skin medially and laterally to remove dog-ears and help improve closure. I undermined the skin edges. Hemostasis was obtained with Bovie cautery and I irrigated with normal saline. Closure was done with 3-0 vicryl and 4-0 nylon. Diameter of excision with margins was 3.2 cm. Length of closure was 5.1 cm A
[2024-04-06] MEDS: ceFAZolin 2 GM/D5W 50 ML 2 GM/50 ML BAG IVPB (07:39)
[2024-04-06] MEDS: LIDO 1%/EPINEPHRINE 1:100,000 50 ML VIAL 10 ML INFILTRATE (08:19)
[2024-04-06] MEDS: BUPivacaine HCL 0.5% PF 30 ML VIAL 10 ML INFILTRATE (08:20)
[2024-04-06 09:11] LABS: Glucose Point of Care 145 mg/dl (65-105)
== END 2024-04-06 11:00 | disposition home or self-care (01) ==
PROVIDERS: PCP Family Medicine Sports Medicine; Visit Provider Plastic Surgery
PROC: (CPT 11603; principal; 2024-04-06 07:30)
PROC: (CPT 11603; 2024-04-06 07:30)
DX: C44.42 Squamous cell carcinoma of skin of scalp and neck (principal); D04.61 Carcinoma in situ of skin of right upper limb, including shoulder; C44.319 Basal cell carcinoma of skin of other parts of face; L57.0 Actinic keratosis; L85.8 Other specified epidermal thickening; E78.5 Hyperlipidemia, unspecified; E11.9 Type 2 diabetes mellitus without complications; I11.0 Hypertensive heart disease with heart failure; I50.9 Heart failure, unspecified; Z79.4 Long term (current) use of insulin; Z79.891 Long term (current) use of opiate analgesic; Z79.84 Long term (current) use of oral hypoglycemic drugs; Z85.828 Personal history of other malignant neoplasm of skin; Z87.442 Personal history of urinary calculi; Z87.891 Personal history of nicotine dependence
CPT/HCPCS: 11603; 11626; 11642; 11624; 13121; 13122; 15275; 36415; 80048; 82948; 85610; 85730; 88305; 88331; 93005; A9270; C9363; J0690; J1100; J2371; J2704; J3010

== ENCOUNTER 2024-04-28 03:21 | Day surgery (SDC) | payer MEDICARE, SELFPAY ==
[2024-04-26 15:12] VITALS: BMI 35.9
--- NOTE | 2024-04-26 15:13 | PC.NURSE ---
Report to the Outpatient Waiting Room, entrance under the green pavilion located off [facility], at time _0615_ on date _15-25-1092_. Planned Procedure Time: _0815_.? Time changes happen often and if your time is changed the preop area will call you the afternoon before. - You and your visitor will be asked to self-screen and do not enter if you have any COVID symptoms. Please call surgeon if you need to reschedule. - A mask is optional within the hospital at this time. Patients may have clear liquids (water, carbonated beverages, clear teas, apple juice) until 3 hours prior to surgery with a maximum of 20 ounces. - No food from midnight until time of surgery and no smoking Take only the following medications with a SIP of water on the morning of surgery: _None DO NOT STOP ANY OF YOUR OTHER PRESCRIPTION MEDICATIONS PRIOR TO SURGERY EXCEPT THE FOLLOWING Medications to discontinue per physician ___All vitamins Date to take last dose___Stop now. Please no make-up, nail bengali, hairspray, perfume, deodorant, or body powder the day of surgery.? No jewelry (including any body piercings) or valuables the day of surgery, leave them at home.? Please take a shower or bath the night before, or the morning of, surgery with an antibacterial soap.? Wear comfortable, loose fitting clothing.? - Jewelry must be removed prior to entering the operating room.? Rings and piercings that are not removed may be cut off. - The hospital will not accept responsibility for valuables.? - Please leave all valuables, including medications, at home the day of surgery. If you are going home after surgery, a licensed class b driver must drive you home.? - NO public transportation without another adult if you receive anesthesia. - We recommend that an adult stay with you for 24 hours following discharge. - We also recommend that you do not drive, make important decision, drink alcoholic beverages, or take any drugs that were not prescribed by your health care provider for at least 24 hours after your discharge time. Follow any additional instructions given to you from your surgeon. Telephone instructions given to __Bob__and asked if any additional questions and then verbalized understanding. Patient advised to call surgeon office or pre surgery nurse liaison [phone] if any additional questions
--- NOTE | 2024-04-26 15:19 | PC.NURSE ---
Report to the Outpatient Waiting Room, entrance under the green pavilion located off [facility], at time _0615_ on date _[id number]_. Planned Procedure Time: _0815_.? Time changes happen often and if your time is changed the preop area will call you the afternoon before. - You and your visitor will be asked to self-screen and do not enter if you have any COVID symptoms. Please call surgeon if you need to reschedule. - A mask is optional within the hospital at this time. - No food or drink from midnight until time of surgery and no smoking Take only the following medications with a SIP of water on the morning of surgery: __None DO NOT STOP ANY OF YOUR OTHER PRESCRIPTION MEDICATIONS PRIOR TO SURGERY EXCEPT THE FOLLOWING Medications to discontinue per physician ____All vitamins Date to take last dose___Stop now Please no make-up, nail swedish, hairspray, perfume, deodorant, or body powder the day of surgery.? No jewelry (including any body piercings) or valuables the day of surgery, leave them at home.? Please take a shower or bath the night before, or the morning of, surgery with an antibacterial soap.? Wear comfortable, loose fitting clothing.? - Jewelry must be removed prior to entering the operating room.? Rings and piercings that are not removed may be cut off. - The hospital will not accept responsibility for valuables.? - Please leave all valuables, including medications, at home the day of surgery. If you are going home after surgery, a licensed drive away driver must drive you home.? - NO public transportation without another adult if you receive anesthesia. - We recommend that an adult stay with you for 24 hours following discharge. - We also recommend that you do not drive, make important decision, drink alcoholic beverages, or take any drugs that were not prescribed by your health care provider for at least 24 hours after your discharge time. Follow any additional instructions given to you from your surgeon. Telephone instructions given to __Bob__and asked if any additional questions and then verbalized understanding. Patient advised to call surgeon office or pre surgery nurse liaison [phone] if any additional questions
--- NOTE | 2024-04-28 07:02 | WPDHPUPDATE1 ---
History and Physical Update Update Date/Time: 04/28/24 07:02 Patient seen and examined in pre-operative holding area. No interval change in medical history or symptoms. Patient recalls previous discussion of benefits and alternatives to procedure. Continues to desire to proceed with full thickness skin graft to scalp from left arm . Reviewed procedure, post-op expectations and risks including but not limited to bleeding, infection,partial/total graft loss, donor site complications, no change/worsening of symptoms, recurrence, undesireable cosmetic appearance. I discussed the possible use of assistants and their participation in the case. Patient stated understanding and signed the consent form wishing to proceed.
--- NOTE | 2024-04-28 07:03 | P.OP_ITS ---
Procedure Note - Detailed Date of Procedure 04/28/24 Pre-op Diagnosis open wound scalp Post-op Diagnosis Same Procedure Performed ftsg scalp and preparation recipient site for graft Surgeon Azael Montelongo MD Can Line Examiner vivek pitts pa-c Anesthesia MAC Description of Procedure Patient was seen in the preoperative holding area where the forehead wound and left arm donor site were marked. Consent form was signed. Patient was taken back to the operating room on the stretcher in the supine position. Time-out was performed with Anesthesia, surgeon, and staff agree on patient's name, site, and surgery to be performed. SCDs were placed on the lower extremities and inflated. Antibiotics were given IV. After general anesthesia was administered The forehead wound and left arm donor site were prepped and draped in the usual sterile fashion. I injected 20 cc of 1% lidocaine with epinephrine and 0.5% Marcaine plain along the recipient site as well as the planned graft harvest site. I took my attention to the forehead wound where using a curette I proceeded with preparing the recipient site for the graft. Freshening the edges as needed with 15 blade scalpel and ensuring healthy punctate bleeding from the graft bed. I irrigated with normal saline. I measured the defect which was 5x5cm . I transposed this defect measurements to the left medial arm and proceeded with making an elliptical incision encompassing this graft through skin and dermis with a 15 blade scalpel. The full-thickness graft was harvested with scissors and Bovie cautery. I irrigated with normal saline. I sharply excised excess skin at ends to remove dog ears.The donor site was closed with 3-0 Vicryl and 3- 0 Monocryl suture. A dressing of Exofin, 4 x 4, ABD and Yakov bandage was applied to the donor site. Length of this closure was 10cm I proceeded with de-fatting the graft to dermis. I proceeded with initial tacking of the graft to the defect with 3-0 nylon suture. 4-0 chromic was used to secure the remainder of the graft. I trimmed the graft appropriately while doing so. I then proceeded with placing a bolster dressing of Xeroform and cotton balls secured with the initially placed nylon sutures. A dressing of 4 x 4 ABD and head wrap was then applied. The patient was awakened from anesthesia and transferred to the recovery room in stable condition. Complications: None estimated blood loss: 5 cc disposition: Patient tolerated the procedure well and will be going home later today Vivek Pitts PA-C was essential for positioning, retraction, closure and dressing placement [facility] Billing Surgery - Charge Forward: Surgery Billing ([id number], [id number], [id number] same for vivek frausto )
--- NOTE | 2024-04-28 07:03 | WPDANESEPPF ---
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 Patient Data Age: 83 Gender: M Height: 1.88 m Weight: 126.8 kg Allergies Allergy/AdvReac Type Severity Reaction Status Date / Time meperidine [From Demerol] AdvReac Mild Hallucinati Verified 04/26/24 15:00 ons Home Medications Medication Instructions Recorded Confirmed Type ascorbic acid (vitamin C) 500 mg 500 mg PO DAILY 03/01/20 04/26/24 History capsule cholecalciferol (vitamin D3) 50 100 mcg PO DAILY 03/01/20 04/26/24 History mcg (2,000 unit) tablet cyanocobalamin (vitamin B-12) 1,000 mcg PO DAILY 03/01/20 04/26/24 History 1,000 mcg tablet enalapril maleate 20 mg tablet 20 mg PO BID 03/01/20 04/26/24 History (Vasotec) furosemide 40 mg tablet 40 mg PO QAM 03/01/20 04/26/24 History gemfibrozil 600 mg tablet 300 mg PO BID 03/01/20 04/26/24 History glucosamine 750 [id number] 1 tablet PO BID 03/01/20 04/26/24 History no1 644 mg-C 30 mg-carito 1 mg tablet (Osteo Bi-Flex Triple Strength) insulin glargine 100 unit/mL (3 75 unit subcut HS 03/01/20 04/26/24 History mL) subcutaneous pen (Lantus Solostar U-100 Insulin) rosuvastatin 20 mg tablet (Crestor) 20 mg PO HS 03/01/20 04/26/24 History sitagliptin phosphate 100 mg 100 mg PO QAM 03/01/20 04/26/24 History tablet (Januvia) tramadol 50 mg tablet 50 - 100 mg PO Q6H PRN pain #10 09/04/21 04/26/24 Rx tabs colchicine 0.6 mg capsule 0.6 mg PO DAILY 03/30/24 04/26/24 History dapagliflozin propaned 10 1 tablet PO DAILY 03/30/24 04/26/24 History mg-metformin ER 500 mg tablet, ext rel 24hr (Xigduo XR) Patient hx anesthesia problems: none Family hx anesthesia problems: none Results Review: All pre-operative results and documents have been reviewed as part of the pre-operative evaluation. [facility] Past Medical History Medical History CHF (congestive heart failure) Diabetes type 2, controlled Hyperlipidemia Hypertension Kidney stone Skin cancer Social History Social History (Updated 04/19/24 @ 08:36 by Karen Montez) Social History: Caffeine-daily Smoking status: Former smoker Tobacco type: pipe Second hand tobacco smoke exposure: Yes Smoking end date: 07/27/71 Additional smoking assessment comments: Smoked cigars for 3 years Alcohol intake: current Alcohol use details: Two DRINK PER MONTH Substance use: never Substance use type: does not use Living arrangements: alone Additional living arrangements comments: Spiritual care concerns: No Anes - Eval Final PreProcedure Day of Procedure 04/28/24 07:03 Patient weight: obese Heart: regular rate and rhythm Lungs: clear to auscultation Airway: Mallampati scale Neurological: alert and oriented Last oral intake: >/= 8 hours ASA classification: III Emergent: no Anesthetic plan: proceed Anesthesia type and monitoring: general LMA and standard monitoring Results Review: All pre-operative results and documents have been reviewed as part of the pre-operative evaluation. HTN, hyperlipidemia, DM fsbs 135. Informed Consent: The patient's anesthetic plan and its attendant risks and benefits were discussed with the patient/family/POA. Questions were solicited and answers provided to the satisfaction of the patient/family/POA.
[2024-04-28 07:05] LABS: Glucose Point of Care 135 mg/dl (65-105)
[2024-04-28 07:21] VITALS: BMI 24.3
[2024-04-28 07:36] VITALS: BP 116/64; PULSE 90; TEMP 36.4; O2SAT 98
[2024-04-28] MEDS: LACTATED RINGERS 1,000 ML 30 ML IV CONT (07:54)
[2024-04-28] MEDS: ceFAZolin 2 GM/D5W 50 ML 2 GM/50 ML BAG IVPB (08:17)
[2024-04-28] MEDS: LIDO 1%/EPINEPHRINE 1:100,000 20 ML VIAL 10 ML INFILTRATE (08:31)
[2024-04-28 09:04] VITALS: BP 120/61; PULSE 94; RESP 16; O2SAT 97
[2024-04-28 09:28] LABS: Glucose Point of Care 134 mg/dl (65-105)
[2024-04-28 09:32] VITALS: BP 136/61; PULSE 90; RESP 16
[2024-04-28 09:55] VITALS: BP 130/60; PULSE 87; RESP 16
== END 2024-04-28 10:05 | disposition home or self-care (01) ==
PROVIDERS: PCP Family Medicine Sports Medicine; Visit Provider Plastic Surgery
PROC: (CPT 15220; principal; 2024-04-28 08:15)
DX: Z48.1 Encounter for planned postprocedural wound closure (principal); Z85.828 Personal history of other malignant neoplasm of skin; Z79.4 Long term (current) use of insulin; Z79.84 Long term (current) use of oral hypoglycemic drugs; Z87.891 Personal history of nicotine dependence
CPT/HCPCS: 15220; 15221; 15004; 82948; A9270; J0690; J2004; J2704; J3010; J7120